=== PATIENT | male | born 1995 | race Caucasian/White ===

== ENCOUNTER 2017-01-08 10:54 | Emergency (ER) ==
[2017-01-08 11:02] VITALS: BP 137/74
--- NOTE | 2017-01-08 11:22 | PROVIDER DOCUMENTATION ---
HPI-General Adult - History of Present Illness -Gen Adult Nature of Presenting Problems: 21 YOM PRESENTS TO ED WITH C/O PT STATES HE HAS HAD COUGH, BODY ACHES, SORE THROAT, FEVER, AND CONGESTION, X 3 DAYS. PT STATES HE HAD EXPOSURE TO HIS DAUGHTER, WHO HAD STREP. Location of Pain/Injury: reports: generalized Pain Radiation: reports: no radiation Quality of Pain: reports: aching Severity: reports: moderate Onset/Duration: reports: 3 days ago Timing: reports: still present Context/Activities at Onset: reports: light activity Modifying Factors: improves with: nothing Associated Symptoms: reports: cough, fever/chills, muscle aches, sinus congestion/drainage Similar Symptoms Previously?: No Recently seen or treated by another doctor?: No <Reynaldo Shafer - Last Filed: 01/08/17 11:17> <Nic Tobar - Last Filed: 01/08/17 13:20> - General Chief Complaint: Sore Throat Stated Complaint: SORE THROAT Time Seen by Provider: 01/08/17 11:45 Allergies/Adverse Reactions: Patient Allergies Allergy/AdvReac Type Severity Reaction Status Date / Time Penicillins Allergy Unknown Verified 06/28/15 14:28 Home Medications: Home Medication List Medication Instructions Recorded Confirmed Last Taken Type Azithromycin [Zithromax Z-Jose A] 250 mg PO DIRECTED #1 pkg 01/08/17 Unknown Rx Review of Systems - Adult - REVIEW OF SYSTEMS - ADULT Constitutional: reports: fever. denies: chills Eyes: reports: no symptoms reported Ears, Nose, Mouth & Throat: reports: throat pain Cardiovascular: denies: chest pain, palpitations, syncope Respiratory: reports: cough. denies: shortness of breath, wheezing Gastrointestinal: denies: abdominal pain, diarrhea, nausea, vomiting Genitourinary: reports: no symptoms reported Musculoskeletal: denies: back pain, neck pain Integumentary: reports: no symptoms reported Neurological: denies: dizziness/vertigo, headache/migraines, syncope Psychiatric: reports: no symptoms reported Endocrine: reports: no symptoms reported Hematologic/Lymphatic: reports: no symptoms reported Allergic/Immunologic: reports: no symptoms reported All Other Systems: Reviewed and Negative <Reynaldo Shafer - Last Filed: 01/08/17 11:17> Past History - Adult - PAST MEDICAL HISTORY-ADULT Review of Records: reports: Nursing Assessment Review, Medications Reviewed - IMMUNIZATION STATUS Childhood Immunizations: See Nurse Assessment Flu Vaccine: See Nurse Assessment - FAMILY HISTORY Family History: reviewed, not pertinent - SOCIAL HISTORY Smoking: denies Substance Use: denies Alcohol Use Frequency: never Living Situation: family <Reynaldo Shafer - Last Filed: 01/08/17 11:17> Physical Exam-General - CONSTITUTIONAL General Appearance: alert, moderate distress - EYES Eyes: PERRL/EOMI, pink conjunctivae - HEAD, EARS, NOSE, MOUTH & THROAT HENMT: normocephalic/atraumatic, moist mucous membranes - NECK Neck: non-tender, full range of motion, supple - RESPIRATORY Respiratory: chest non-tender, lungs clear, normal breath sounds - CARDIOVASCULAR Cardiovascular: normal peripheral pulses, regular rate, rhythm - GASTROINTESTINAL (ABDOMEN) Abdominal Exam: normal bowel sounds, non tender, soft - LYMPHATIC Lymphatic: no adenopathy - MUSCULOSKELETAL Back Exam: normal inspection, no CVA tenderness, no vertebral tenderness Extremity: normal range of motion, non-tender - SKIN Integumentary: normal color, normal turgor, warm/dry - NEUROLOGIC Neurologic: grossly normal - PSYCHIATRIC Psych/Mental Status: oriented x 3 <Reynaldo Shafer - Last Filed: 01/08/17 11:17> - HEAD, EARS, NOSE, MOUTH & THROAT HENMT: TMs normal, pharyngeal erythema. negative: tonsillar exudate - NECK Neck: lymphadenopathy (POSTERIOR CERVICAL NODES PALPABLE, BUT NON TENDER) <Nic Tobar - Last Filed: 01/08/17 13:20> Progress - PLAN OF CARE/RESULTS Progress/Plan/Lab Results: Laboratory Tests 01/08/17 01/08/17 01/08/17 11:00 11:55 12:08 Monoscreen NEGATIVE Influenza A (Rapid) NEGATIVE Influenza B (Rapid) NEGATIVE Group A Strep Rapid NEGATIVE Orders Category Date Time Status DIRECT STREP PL Stat Lab 01/08/17 11:[address] Stat Lab 01/08/17 11:55 Completed MONO SCREEN [SERO] Stat Lab 01/08/17 12:08 Completed Vital Signs - 24 hr 01/08/17 10:58 Temperature 99.5 F Pulse Rate 89 Respiratory 19 Rate Blood Pressure 137/74 O2 Sat by Pulse 98 Oximetry <Nic Tobar - Last Filed: 01/08/17 13:20> Departure <Reynaldo Shafer - Last Filed: 01/08/17 11:17> - Departure Time of Disposition Order: 13:14 Certified Medical Emergency: Emergent <Nic Tobar - Last Filed: 01/08/17 13:20> - Departure DIAGNOSIS: Pharyngitis Qualifiers: Pharyngitis/tonsillitis etiology: unspecified etiology Qualified Code(s): J02.9 - Acute pharyngitis, unspecified Disposition: HOME 01 Condition: Good Additional Instructions: OVER THE COUNTER COUGH MEDICATION OF YOUR CHOICE. MOTRIN OR TYLENOL OVER THE COUNTER PER PACKAGE DIRECTIONS FOR PAIN OR FEVER. Prescriptions: Azithromycin [Zithromax Z-Jose A] 250 mg PO DIRECTED #1 pkg Referrals: None,PCP [Primary Care Provider] - Kavon Simms MD [STAFF PHYSICIAN] - (FOLLOW UP IF NOT IMPROVED IN 7 DAYS. ) Attestation - Scribe Verification/Attestation Scribe:: Reynaldo Shafer Acting as Scribe for:: Nic Tobar Scribe documention review:: This chart was documented by a scribe and accurately reflects the service the provider performed and the decisions made by the provider. <Reynaldo Shafer - Last Filed: 01/08/17 11:17> Physician Attestation
[2017-01-08] MEDS ORDERED: DECADRON IM ONE (13:12)
== END 2017-01-08 13:48 | disposition home or self-care (01) ==
LOC: P.ED 10:54
DX: J02.9 Acute pharyngitis, unspecified (principal); R05 Cough; R50.9 Fever, unspecified; R09.81 Nasal congestion; M79.1 Myalgia; R59.0 Localized enlarged lymph nodes
CPT/HCPCS: 36415; 86308; 87081; 87430; 87804